=== PATIENT | female | born 1970 | race Caucasian/White ===

== ENCOUNTER → 2022-12-18 | Outpatient (CLI) | payer OTHER | LOC: M WHC 14:18 | PROVIDERS: ATTEND Nurse Practitioner Family | DX: Z12.31 Encounter for screening mammogram for malignant neoplasm of breast (principal) ==

== ENCOUNTER 2022-12-31 07:42 | Emergency (ER) | payer OTHER ==
[~2022-12-31] VITALS: Ht 177.8 cm; Wt 94.9 kg
[2022-12-31] MEDS ORDERED: PARO40TA2 (08:07)
[2022-12-31] MEDS ORDERED: ALPR0.5T3 (08:07)
[2022-12-31] MEDS ORDERED: BUTA-198 (08:07)
[2022-12-31] MEDS ORDERED: OMEP-173 (08:08)
[2022-12-31] MEDS ORDERED: LORA-1041 (08:08)
[2022-12-31] MEDS ORDERED: FAMO1TAB11 (08:08)
[2022-12-31] MEDS ORDERED: FLUT50SP17 (08:08)
[2022-12-31] MEDS ORDERED: METOCLOPRAMIDE INJ 10MG/2ML VIAL IV ONE (08:30)
[2022-12-31] MEDS ORDERED: diphenhydrAMINE 50MG/ML VIAL IV ONE (08:30)
[2022-12-31] MEDS ORDERED: ASPIRIN 81MG CHEW TABLET PO ONE (08:30)
[2022-12-31] MEDS ORDERED: ACETAMINOPHEN 500 MG TAB PO ONE (08:30)
[2022-12-31 08:37] LABS: BASO % 0.4 % (0.0-1.0); EOS # 0.1 10^3/uL (0.0-0.5); HEMATOCRIT 42.3 % (36.0-47.0); HEMOGLOBIN 13.9 g/dl (12.0-15.5); LYMPH # 1.2 10^3/uL (1.5-5.0); LYMPH % 14.5 % (24.0-44.0); MEAN CORPUSCULAR HEMOGLOBIN 30.6 pg (27.0-33.0); MEAN CORPUSCULAR HGB CONC 32.9 g/dl (32.0-36.5); MEAN CORPUSCULAR VOLUME 93.2 fl (80.0-96.0); MONO # 0.6 10^3/uL (0.0-0.8); MONO % 7.2 % (2.0-8.0); NEUTROPHILS # 6.3 10^3/uL (1.5-8.5); NEUTROPHILS % 76.7 % (36.0-66.0); PLATELET COUNT, AUTOMATED 206 10^3/uL (150-450); RED BLOOD COUNT 4.54 10^6/uL (4.00-5.40); WHITE BLOOD COUNT 8.2 10^3/uL (4.0-10.0)
[2022-12-31 08:50] LABS: INR 0.92
[2022-12-31 08:51] LABS: PARTIAL THROMBOPLASTIN TIME 23.6 SECONDS (24.8-34.2)
[2022-12-31 08:56] LABS: D-DIMER QUANT 0.37 ug/mL (<0.5)
[2022-12-31 09:24] LABS: CK-MB VALUE MASS < 1.0 NG/ML (<3.6); LIPASE 35 U/L (12-53)
[2022-12-31 09:27] LABS: ALBUMIN 3.8 G/DL (3.2-5.2); ALKALINE PHOSPHATASE 80 U/L (46-116); ALT/SGPT 27 U/L (7.0-40); AST/SGOT 21 U/L (<34); BILIRUBIN,DIRECT 0.1 MG/DL (<0.4); BILIRUBIN,TOTAL 0.4 MG/DL (0.3-1.2); BLOOD UREA NITROGEN 11 MG/DL (9-23); CALCIUM LEVEL 8.6 MG/DL (8.5-10.1); CARBON DIOXIDE LEVEL 29 MMOL/L (20-31); CHLORIDE LEVEL 106 MMOL/L (98-107); CREATININE FOR GFR 0.72 MG/DL (0.55-1.30); GLOMERULAR FILTRATION RATE > 60.0 (>51); GLUCOSE, FASTING 82 MG/DL (60-100); POTASSIUM SERUM 4.5 MMOL/L (3.5-5.1); SODIUM LEVEL 140 MMOL/L (136-145); TOTAL PROTEIN 7.1 G/DL (5.7-8.2)
[2022-12-31 09:29] LABS: THYROID STIMULATING HORMONE 2.886 uIU/ML (0.55-4.78)
[2022-12-31 09:31] LABS: CPK CREATINE PHOSPHOKINASE 80 U/L (34-145); MB/CK RELATIVE INDEX 1.25 (< OR =4)
[2022-12-31 10:08] LABS: CK-MB VALUE MASS < 1.0 NG/ML (<3.6)
[2022-12-31 10:11] LABS: CPK CREATINE PHOSPHOKINASE 80 U/L (34-145); MB/CK RELATIVE INDEX 1.25 (< OR =4)
[2022-12-31] MEDS ORDERED: ISOVUE-370 76% 100ML VIAL As Ordered ONE (10:45)
[2022-12-31] MEDS ORDERED: IPRATROPIUM 0.5MG/ALBUTEROL 2.5MG INH SOL UD 3ML (DUONEB) NEB ONE (11:20)
[2022-12-31] MEDS ORDERED: PRED20TA PO (12:45)
[2022-12-31] MEDS ORDERED: ALBU6.7H6 INH (12:46)
[2022-12-31 13:05] VITALS: BP 122/81; TEMP 97.6; O2SAT 98
== END 2022-12-31 13:08 | disposition home or self-care (01) ==
LOC: M ED 07:42
DX: J06.9 Acute upper respiratory infection, unspecified (principal); R07.9 Chest pain, unspecified; G43.909 Migraine, unspecified, not intractable, without status migrainosus; F41.9 Anxiety disorder, unspecified; F17.200 Nicotine dependence, unspecified, uncomplicated; Z88.2 Allergy status to sulfonamides; Z88.5 Allergy status to narcotic agent; Z79.52 Long term (current) use of systemic steroids; Z79.83 Long term (current) use of bisphosphonates; Z79.899 Other long term (current) drug therapy
CPT/HCPCS: 71045; 71275; 80048; 80076; 82550; 82553; 83690; 84443; 85025; 85379; 85610; 85730; 87486; 87581; 87633; 87798; 93005; 93041; 94640; 94760; 96374; 96375; 99285; J1200; J2765; Q9967